=== PATIENT | female | born 1995 | race Caucasian/White ===

== ENCOUNTER 2018-12-03 15:17 | Outpatient (REF) | payer BC, SELFPAY ==
[2018-12-03 21:40] LABS: Abs Immature Grans 0.01 k/cumm (0.0-0.09); Absolute Basophil Count 0.01 k/cumm (0.0-0.2); Absolute Eosinophil Count 0.05 k/cumm (0.0-0.7); Absolute Lymphocyte Count 1.62 k/cumm (1.2-3.4); Absolute Monocyte Count 0.62 k/cumm (0.11-0.7); Basophils % 0.1; Eosinophils % 0.7; HCT 38.5 % (36.0-46.0); HGB 12.7 g/dL (12.0-15.5); Immature Grans % 0.1; Lymphocytes % 23.4; Mean Corpuscular Hemoglobin 26.7 pg (27.0-33.0); Mean Corpuscular Volume 80.9 fL (80-95); Neutrophils % 66.7; Platelet Count 350 x1000/uL (130-400); RBC 4.76 m/cumm (4.00-5.20); RBC Distribution Width 12.8 % (11.7-14.6); White Blood Cell Count 6.91 k/cumm (4.4-10.8)
[2018-12-03 21:46] LABS: Iron 25 ug/dL (50-175); Total Iron Binding Capacity 351 ug/dL (250-450); Transferrin Sat 7 % (15-50)
[2018-12-03 21:57] LABS: ALT 22 U/L (14-59); AST 10 U/L (15-37); Albumin 3.8 g/dL (3.4-5.0); Alkaline Phosphatase 107 U/L (46-116); Anion Gap 9.2 mmol/L (3-11); BUN 14 mg/dL (7-18); Bilirubin, Total 0.2 mg/dL (0.2-1.0); CO2 26.8 mmol/L (21.0-32.0); CREATININE 0.64 mg/dL (0.55-1.02); Calcium 9.5 mg/dL (8.5-10.1); Calculated LDL 140 mg/dL; Chloride 101 mmol/L (98-107); Cholesterol 225 mg/dL (50-200); Glucose 268 mg/dL (70-100); HDL Cholesterol 64 mg/dL (40-60); Potassium 4.4 mmol/L (3.5-5.1); Sodium 137 mmol/L (136-145); TSH (W/Ref FT4) 3.19 uIU/mL (0.36-3.74); Total Protein 7.6 g/dL (6.4-8.2); Triglyceride 107 mg/dL (30-150)
[2018-12-03 22:12] LABS: C-Reactive Protein 0.37 mg/dL (0.0-0.3)
[2018-12-03 22:26] LABS: ESR 17 mm/hr (0-20)
[2018-12-05 14:07] LABS: ANA Interpretation Positive (NEGAT); ANA Titer Pattern SEE COMMENTS
== END 2018-12-03 15:37 ==
LOC: NCHCN 15:17
PROVIDERS: PCP Nurse Practitioner Family; Visit Provider Nurse Practitioner Family
DX: D64.9 Anemia, unspecified (principal); E10.9 Type 1 diabetes mellitus without complications; F41.8 Other specified anxiety disorders; M25.511 Pain in right shoulder; K76.0 Fatty (change of) liver, not elsewhere classified; M79.641 Pain in right hand; M79.642 Pain in left hand; E66.9 Obesity, unspecified
CPT/HCPCS: 80053; 80061; 85652; 83540; 83550; 84443; 85025; 86038; 86140

== ENCOUNTER 2019-01-03 14:41 | Outpatient (REF) | payer BC, SELFPAY ==
[2019-01-03 21:04] LABS: Anion Gap 11.5 mmol/L (3-11); BUN 11 mg/dL (7-18); CO2 24.5 mmol/L (21.0-32.0); CREATININE 0.52 mg/dL (0.55-1.02); Calcium 9.4 mg/dL (8.5-10.1); Chloride 99 mmol/L (98-107); Glucose 332 mg/dL (74-106); Potassium 4.8 mmol/L (3.5-5.1); Sodium 135 mmol/L (136-145)
[2019-01-03 21:29] LABS: Iron 36 ug/dL (50-170)
== END 2019-01-03 15:01 ==
LOC: NCHCN 14:41
PROVIDERS: PCP Nurse Practitioner Family; Visit Provider Nurse Practitioner Family
DX: D64.9 Anemia, unspecified (principal); E10.9 Type 1 diabetes mellitus without complications; K76.0 Fatty (change of) liver, not elsewhere classified; R76.0 Raised antibody titer; E66.9 Obesity, unspecified
CPT/HCPCS: 80048; 83540

== ENCOUNTER 2019-07-25 17:44 | Outpatient (REF) | payer SELFPAY ==
[2019-07-25 21:22] LABS: Abs Immature Grans 0.01 k/cumm (0.0-0.09); Absolute Basophil Count 0.01 k/cumm (0.0-0.2); Absolute Eosinophil Count 0.06 k/cumm (0.0-0.7); Absolute Monocyte Count 0.69 k/cumm (0.11-0.7); Absolute Neutrophil Count 5.37 k/cumm (1.2-6.7); Basophils % 0.1; Eosinophils % 0.7; HCT 35.8 % (36.0-46.0); Immature Grans % 0.1 %; Lymphocytes % 24.6; Mean Corp. HGB Concentration 33.5 g/dL (32.0-36.0); Mean Corpuscular Hemoglobin 27.5 pg (27.0-33.0); Mean Corpuscular Volume 81.9 fL (80-95); Mean Platelet Volume 11.6 fL (8.0-11.0); Monocytes % 8.5; Platelet Count 361 x1000/uL (130-400); RBC 4.37 m/cumm (4.00-5.20); RBC Distribution Width 12.6 % (11.7-14.6); White Blood Cell Count 8.14 k/cumm (4.4-10.8)
[2019-07-25 22:03] LABS: Iron 56 ug/dL (50-170); Total Iron Binding Capacity 388 ug/dL (250-450); Transferrin Sat 14 % (15-50)
[2019-07-25 22:23] LABS: ALT 22 U/L (14-59); AST 14 U/L (15-37); Albumin 3.5 g/dL (3.4-5.0); Alkaline Phosphatase 79 U/L (46-116); Anion Gap 10.4 mmol/L (3-11); BUN 9 mg/dL (7-18); Bilirubin, Total 0.2 mg/dL (0.2-1.0); CO2 23.6 mmol/L (21.0-32.0); CREATININE 0.56 mg/dL (0.55-1.02); Calcium 9.3 mg/dL (8.5-10.1); Chloride 103 mmol/L (98-107); Glucose 156 mg/dL (74-106); Sodium 137 mmol/L (136-145); Total Protein 7.3 g/dL (6.4-8.2)
== END 2019-07-25 18:04 ==
LOC: NCHCN 17:44
PROVIDERS: PCP Nurse Practitioner Family; Visit Provider Nurse Practitioner Family
DX: D64.9 Anemia, unspecified (principal); K76.0 Fatty (change of) liver, not elsewhere classified; E10.9 Type 1 diabetes mellitus without complications; F41.8 Other specified anxiety disorders; E66.9 Obesity, unspecified; Z33.1 Pregnant state, incidental
CPT/HCPCS: 80053; 83540; 83550; 84702; 85025